=== PATIENT | female | born 1990 | race Caucasian/White ===

== ENCOUNTER 2016-09-23 04:55 | Outpatient (CLI) | payer OTHER | END 2016-09-23 04:56 | disposition EMS.NT | DX: M25.512 Pain in left shoulder (principal) ==

== ENCOUNTER 2016-09-23 06:03 | Emergency (ER) | payer OTHER | END 2016-09-23 07:12 | disposition home or self-care (01) | DX: R07.89 Other chest pain (principal); F41.9 Anxiety disorder, unspecified; F32.9 Major depressive disorder, single episode, unspecified ==

== ENCOUNTER 2016-12-28 19:41 | Outpatient (CLI) | payer OTHER | END 2016-12-28 19:42 | disposition EMS.NT | LOC: EMS 19:41 | PROVIDERS: ATTEND Surgery | DX: R55 Syncope and collapse (principal); R25.2 Cramp and spasm ==

== ENCOUNTER 2017-06-13 13:48 | Outpatient (CLI) | payer OTHER | END 2017-06-13 13:49 | disposition home or self-care (01) | LOC: NS 13:48 | PROVIDERS: ATTEND Family Medicine | DX: Z00.8 Encounter for other general examination (principal); Z71.3 Dietary counseling and surveillance; E66.3 Overweight | CPT/HCPCS: 97802 ==

== ENCOUNTER 2017-11-08 08:09 | Outpatient (CLI) | payer OTHER | END 2017-11-08 08:10 | disposition EMS.NT | LOC: EMS 08:09 | PROVIDERS: ATTEND Surgery | DX: R00.0 Tachycardia, unspecified (principal) ==

== ENCOUNTER 2017-11-08 09:33 | Emergency (ER) | payer OTHER ==
--- NOTE | 2017-11-08 09:48 | ED Physician Documentation ---
History of Present Illness - Stated complaint Stated Complaint: ELEVATED HR - History obtained from History obtained from: Patient - History of Present Illness Timing: Enter time, Today - Additonal information Additional information: 27-year-old female was well when she woke up this morning and was getting ready for work. Just about time that she was done getting ready for work standing in front the mirror she developed acute diaphoresis and noted that her heart rate was markedly elevated on her watch. This lasted about 5 minutes and she has been asymptomatic since. She reports a recent treatment of OM last month with augmentin and episodic dizziness since. Review of Systems Constitutional: reports: Sweats. denies: Fever Eyes: denies: Decreased vision Ears: reports: Other (dizziness). denies: Ear pain Nose: reports: Congestion Throat: denies: Sore throat Cardiac: reports: Palpitations. denies: Chest pain / pressure, Pedal edema, Calf pain Respiratory: denies: Dyspnea, Cough GI: denies: Abdominal Pain, Nausea, Vomiting : denies: Dysuria, Frequency Skin: denies: Rash Musculoskeletal: denies: Neck pain, Back pain, Extremity pain PD PAST MEDICAL HISTORY - Past Medical History Psych: Anxiety - Past Surgical History Past Surgical History: No - Present Medications Home Medications: Ambulatory Orders Medication Instructions Recorded Confirmed Azithromycin [Zithromax] 250 mg PO DAILY #6 tablet 11/08/17 - Allergies Allergies/Adverse Reactions: Allergies Allergy/AdvReac Type Severity Reaction Status Date / Time ceftriaxone sodium * Allergy Hives Verified 11/08/17 12:11 [From Rocephin] doxycycline Allergy Hives Verified 11/08/17 12:11 sulfamethoxazole Allergy Hives Verified 11/08/17 12:11 [From Septra] trimethoprim [From Septra] Allergy Hives Verified 11/08/17 12:11 - Social History Does the pt smoke?: No Smoking Status: Never smoker Does the pt drink ETOH?: No Does the pt have substance abuse?: No - Immunizations Immunizations are current?: Yes - POLST Patient has POLST: No PD ED PE NORMAL - Vitals Vital signs reviewed: Yes (normal ) - General General: Alert and oriented X 3, No acute distress, Well developed/nourished - HEENT HEENT: Atraumatic, PERRL, EOMI, Other (The right TM is inflammed with marked distortion of the landmarks and retraction the left is with mild inflamtion ) - Neck Neck: Supple, no meningeal sign, No bony TTP - Cardiac Cardiac: RRR, No murmur - Respiratory Respiratory: No respiratory distress, Clear bilaterally - Abdomen Abdomen: Soft, Non tender - Back Back: No CVA TTP, No spinal TTP - Derm Derm: Normal color, Warm and dry, No rash - Extremities Extremities: No deformity, No edema - Neuro Neuro: Alert and oriented X 3, No motor deficit, No sensory deficit, Normal speech Eye Opening: Spontaneous Motor: Obeys Commands Verbal: Oriented GCS Score: 15 - Psych Psych: Normal mood, Normal affect Results - Vitals Vitals: Vital Signs - 24 hr 11/08/17 11/08/17 09:51 11:07 Temperature 36.9 C Heart Rate 91 70 Respiratory 18 14 Rate Blood Pressure 100/66 103/72 O2 Saturation 100 100 Oxygen O2 Source Room air - EKG (time done) 0944 Rate: Rate (enter#) (74) Rhythm: NSR Compare to prior EKG: Unchanged from prior EKG (09-23-16) Computer interpretation: Agree with computer - Labs Labs: Laboratory Tests 11/08/17 11/08/17 11/08/17 11:10 11:10 11:10 WBC 5.4 RBC 4.43 Hgb 13.3 Hct 40.1 MCV 90.5 MCH 30.0 MCHC 33.1 RDW 13.5 Plt Count 261 MPV 9.0 Neut # (Auto) 3.5 Lymph # (Auto) 1.4 L [place] # (Auto) 0.3 Eos # (Auto) 0.1 Baso # (Auto) 0.0 Absolute Nucleated RBC 0.00 Nucleated RBC % 0.0 Sodium 135 Potassium 3.8 Chloride 102 Carbon Dioxide 26 Anion Gap 7.0 BUN 14 Creatinine 0.5 Estimated GFR (MDRD) 147 Glucose 94 Calcium 9.5 Total Bilirubin 0.6 AST 28 ALT 32 Alkaline Phosphatase 45 Troponin I < 0.04 Total Protein 8.0 Albumin 4.1 Globulin 3.9 Albumin/Globulin Ratio 1.1 Lipase 46 Procedures - IVC sono (time) 1210 Bedside IVC sono: IVC measures (cm) (1.37), IVC collapsed c insp (cm) (complete) , Dehydration (mild est <1 liter) PD MEDICAL DECISION MAKING - ED course Complexity details: reviewed results, re-evaluated patient, considered differential, d/w patient, d/w family ED course: 27-year-old female with a history of chronic intermittent otitis media has had a recent infection and today on examination has obvious infection. She was on a course of Augmentin previously we will put her on some azithromycin this time. We have given her dose of dexamethasone here in the emergency department. She did have an episode of SVT this morning documented on her iWatch. She was monitored here in the emergency department without return of symptoms. She is mildly dehydrated not enough to account for heart rate of 160. I suspect the transient heart rate may have had something to do with her current infection. She is with a paucity of symptoms for this infection with the exception of the dizziness. - Sepsis Event Vital Signs: Vital Signs - 24 hr 11/08/17 11/08/17 09:51 11:07 Temperature 36.9 C Heart Rate 91 70 Respiratory 18 14 Rate Blood Pressure 100/66 103/72 O2 Saturation 100 100 Oxygen O2 Source Room air Departure - Departure Disposition: 01 Home, Self Care Clinical Impression: SVT (supraventricular tachycardia) Otitis media Qualifiers: Otitis media type: suppurative Chronicity: acute Laterality: bilateral Recurrence: recurrent Spontaneous tympanic membrane rupture: without spontaneous rupture Qualified Code(s): H66.006 - Acute suppurative otitis media without spontaneous rupture of ear drum, recurrent, bilateral Condition: Stable Instructions: ED Otitis Media Acute Adult, ED Tachycardia Pat PSVT Follow-Up: [place] No DO [Primary Care Provider] - Prescriptions: Azithromycin [Zithromax] 250 mg PO DAILY #6 tablet
[2017-11-08 11:08] VITALS: BP 103/72
[2017-11-08 11:36] LABS: ALBUMIN 4.1 g/dL (3.2-5.5); ALBUMIN/GLOBULIN RATIO 1.1 (1.0-2.2); BASOPHILS % (AUTO) 0.8 %; BILIRUBIN,TOTAL 0.6 mg/dL (0.2-1.0); CALCIUM 9.5 mg/dL (8.5-10.3); CREATININE 0.5 mg/dL (0.4-1.0); EOSINOPHILS # (AUTO) 0.1 10^3/uL (0.0-0.7); EOSINOPHILS % (AUTO) 2.2 %; HGB - HEMOGLOBIN 13.3 g/dL (12.0-16.0); LYMPHOCYTES # (AUTO) 1.4 10^3/uL (1.5-3.5); LYMPHOCYTES % (AUTO) 26.4 %; MEAN CORPUSCULAR HGB CONC 33.1 g/dL (32.0-36.0); MEAN CORPUSCULAR VOLUME 90.5 fL (81.0-99.0); MONOCYTES # (AUTO) 0.3 10^3/uL (0.0-1.0); MONOCYTES % (AUTO) 6.3 %; NEUTROPHILS # (AUTO) 3.5 10^3/uL (1.5-6.6); NEUTROPHILS % (AUTO) 64.3 %; PLT - PLATELET COUNT 261 10^3/uL (130-450); RED BLOOD COUNT 4.43 10^6/uL (4.20-5.40); RED CELL DISTRIBUTION WIDTH 13.5 % (12.0-15.0); WHITE BLOOD COUNT 5.4 x10^3/uL (4.8-10.8)
[2017-11-08] MEDS ORDERED: DEXAMETHASONE 10 MG/ML VIAL PO STA (12:26)
--- NOTE | 2017-11-08 12:29 | XRAY Report ---
Procedure Date: 11/08/2017 Accession Number: [id number] / [id number] Procedure: XR - Chest 2 View X-Ray CPT Code: 75128 FULL RESULT: EXAM: CHEST RADIOGRAPHY EXAM DATE: 11/08/2017 11:34 AM. CLINICAL HISTORY: Chest pain and tachycardia. COMPARISON: None. TECHNIQUE: 2 views. FINDINGS: Lungs/Pleura: No focal opacities evident. No pleural effusion. No pneumothorax. Normal volumes. Mediastinum: Heart and mediastinal contours are unremarkable. Other: None. IMPRESSION: Normal 2-view chest radiography. [facility]
== END 2017-11-08 13:10 | disposition home or self-care (01) ==
LOC: ED 09:33
DX: I47.1 Supraventricular tachycardia (principal); H66.006 Acute suppurative otitis media without spontaneous rupture of ear drum, recurrent, bilateral
CPT/HCPCS: 36415; 71046; 80053; 83690; 84484; 85025; 99283